=== PATIENT | female | born 1990 | race Caucasian/White ===

== ENCOUNTER 2021-10-25 21:25 | Inpatient (IN) | payer BC ==
[~2021-10-25] VITALS: Ht 167.6 cm; Wt 109.1 kg
--- NOTE | 2021-10-25 21:25 | NUR ---
2124 - PATIENT ARRIVED TO [facility] VIA WHEELCHAIR ACCOMPANIED BY AND SENIOR EMBEDDED SOFTWARE ENGINEER. PATIENT REPORTS SHE HAS BEEN LABORING AT HOME FOR OVER 24HRS AND WOULD LIKE AN EPIDURAL. PER PATIENT SROM AT 0400 ON 10/24/21. RECORDS FROM SENIOR EMBEDDED SOFTWARE ENGINEER OBTAINED AND PLACED ON CHART. 2129 - PATIENT ORIENTED TO ROOM. PLAN OF CARE REVIEWED. PATIENT PLACED ON EFM. VITAL SIGNS OBTAINED. CONSENTS REVIEWED AND SIGNED. 2144 - IV PLACED AND LABS OBTAINED ORDERED. 2204 - MD SCOTTIE AT BEDSIDE. PLAN OF CARE REVIEWED. 2209 - SVE PERFORMED BY MD SCOTTIE. . 2219 - LR INITITED ORDERED. CARE ONGOING.
[2021-10-25 21:45] VITALS: BP 161/83; PULSE 94; TEMP 98.7
[2021-10-25] MEDS ORDERED: PRENATAL TABLET PO (21:57)
[2021-10-25] MEDS ORDERED: VITAMIN C500 MG PO (21:57)
[2021-10-25] MEDS ORDERED: VITAMIN D31000 IU PO (21:57)
[2021-10-25] MEDS ORDERED: VITAMIN A10k (21:58)
[2021-10-25] MEDS ORDERED: PHARMASSURE ZIN50 MG PO (21:58)
--- NOTE | 2021-10-25 22:15 | NUR ---
DIFFICULTY WITH TOCO TRACING. TOCO ADJUSTED. CARE ONGOING.
[2021-10-25 22:30] LABS: HEMOGLOBIN 12.7 g/dl (12.5-16.0); MEAN CELL VOLUME 83 fl (80.0-100.0); MEAN CORPUSCULAR HEMOGLOBIN 29 pg (27-31); MEAN CORPUSCULAR HGB CONC 35 g/dl (33.0-37.0); MEAN PLATELET VOLUME 10.3 fl (7.4-10.4); PLATELET COUNT 269 K/mm3 (130-400); RED BLOOD COUNT 4.35 M/mm3 (4.10-5.30); REDCELL DISTRIBUTION WIDTH-CV 13.9 % (11.5-14.5)
--- NOTE | 2021-10-25 22:30 | NUR ---
TOCO TRACING INDESCERNIBLE. TOCO ADJUSTED. CARE ONGOING.
--- NOTE | 2021-10-25 22:37 | NUR ---
2237 - GIL MIDDLETON TO BEDSIDE. 2245 - PATIENT POSITIONED SITTING UP FOR EPIDURAL PLACEMENT. 2251 - SINGLE SHOT GIVEN PER GIL MIDDLETON. EFM TRACING POOR DURING PROCEDURE. PATIENT REPOSITIONED AND EFM ADJUSTED. CARE ONGOING.
[2021-10-25 22:39] LABS: HEMATOCRIT 36.3 % (37.0-47.0)
[2021-10-25 22:45] VITALS: BP 178/93; PULSE 96
[2021-10-25 22:49] LABS: BAND 15 % (0-10); LYMPHOCYTE 6 % (20.0-51.0); NEUTROPHILS 75 % (42.0-75.2)
[2021-10-25 22:50] LABS: PLATELET ESTIMATE NORMAL (NORMAL)
[2021-10-25 23:00] VITALS: BP 157/75; PULSE 106
--- NOTE | 2021-10-25 23:00 | NUR ---
PATIENT REPOSITIONED AFTER EPIDURAL PLACEMENT. TOCO ADJUSTED. CARE ONGOING.
[2021-10-25 23:15] VITALS: BP 144/76; PULSE 91
[2021-10-25 23:30] VITALS: BP 126/71; PULSE 101; TEMP 97.9
--- NOTE | 2021-10-25 23:40 | NUR ---
TOCO TRACING DIFFICULT TO INTERPRET. TOCO ADJUSTED. CARE ONGOING.
[2021-10-25 23:45] VITALS: BP 127/61; PULSE 111
[2021-10-26] VITALS (40 sets, daily range): BP systolic 116–175; BP diastolic 55–94; PULSE 68–112; TEMP 97.6–98.6
--- NOTE | 2021-10-26 | NUR ---
TOCO TRACING INDESCERNIBLE. TOCO ADJUSTED. CARE ONGOING.
--- NOTE | 2021-10-26 00:40 | NUR ---
TOCO TRACING DIFFICULT TO INTERPRET. TOCO ADJUSTED. CARE ONGOING.
--- NOTE | 2021-10-26 01:30 | NUR ---
TOCO TRACING INDESCERNIBLE. TOCO ADJUSTED. CARE ONGOING.
--- NOTE | 2021-10-26 01:48 | NUR ---
PATIENT REPOSITIONED AFTER SVE. TOCO ADJUSTED. CARE ONGOING.
--- NOTE | 2021-10-26 02:40 | NUR ---
TOCO ADJUSTED. CARE ONGOING.
--- NOTE | 2021-10-26 02:50 | NUR ---
0250- PT TO LEFT LATERAL POSITION FOR COMFORT, MONITORS ADJUSTED. 0305- TOCO ADJUSTED. 0345- SVE BY Gorge TORO RN COMPLETE AND +2 STATION. CHARGE NURSE AND NURSERY NOTIFIED. PT EDUCATED ON PUSHING PROCESS AND QUESTIONS ANSWERED. 0400- KRUEGER CATHETER REMOVED FOR PUSHING AND PERICARE PROVIDED. 0415- PT POSITIONED IN FOOTPLATES AND BEGINS COACHED PUSHING WITH CONTRACTIONS. 0600- CONTRACTIONS STILL IRREGULAR, PT MAKING PROGRESS. PITOCIN INCREASED TO 10MUNITS.
--- NOTE | 2021-10-26 06:30 | NUR ---
0630Bedside report from Dino Haywood RN. Patient pushing with contractions. Strong maternal effort. Moves vertex well. 0651Dr. Brizuela updated on pt. See physician notification. FHR tracing intermittently due to maternal pushing efforts and habitus. RN remains at bedside. 0704Small crown noted with pushing. Dr. Brizuela updated. See physician notification. 0715Dr. Brizuela to bedside. Pt continues to push with contractions with Dr. rBizuela and nursing staff at bedside. 0724Spontaneous vaginal delivery of viable female infant. To mother's chest where dried and stimulated by nursery RN. Pitocin paused. 0733Cord clamped x2 and cut by father of . Cord gases/blood obtained by Dr. Brizuela. Care of assumed by Danyell Gee RN. 0737Spontaneous and intact delivery of placenta. Pitocin to 333ml/hr per protocol. Periurethral and second degree laceration repaired by Dr. Brizuela. Fundus firm, midline, and bleeding small. Teresa care provided, pads changed, and ice pack to perineum. Plan of care and safety precations reviewed. See doctor dictation, anesthesia record, and nurses notes.
--- NOTE | 2021-10-26 08:15 | NUR ---
0815Epidural catheter removed by Soni Neely CRNA. See anesthesia record.
[2021-10-26] MEDS ORDERED: MOTRIN 800800 MG/TAB PO (15:52)
[2021-10-27 04:00] VITALS: BP 123/65; PULSE 88; TEMP 97.9
[2021-10-27 08:15] VITALS: BP 118/46; PULSE 86; TEMP 97.8
[2021-10-27 16:34] VITALS: BP 135/84; PULSE 106; TEMP 97.8
[2021-10-27 22:30] VITALS: BP 136/80; PULSE 96; TEMP 98.1
[2021-10-28 07:40] VITALS: BP 123/66; PULSE 96; TEMP 97.7
--- NOTE | 2021-10-28 10:59 | NUR ---
1040DISCHARGE INSTRUCTIONS REVIEWED WITH PATIENT. PATIENT VERBALIZED UNDERSTANDING. ALL QUESTIONS ANSWERED. WILL NOTIFY NURSING STAFF WHEN READY TO LEAVE.
--- NOTE | 2021-10-28 11:46 | NUR ---
1130ALL PERSONAL BELONGINGS GATHERED FROM PATIENT ROOM. PATIENT LEFT AMBULATORY AND IN NO APPARENT DISTRESS. PATIENT ACCOMPANIED BY SPOUSE AND THIS RN.
== END 2021-10-28 11:30 | disposition home or self-care (01) | DRG 807 ==
LOC: LDRO 21:25 → LDR 21:52 → OB 21:52
PROVIDERS: ADMIT Obstetrics & Gynecology
PROC: 10E0XZZ Delivery of Products of Conception, External Approach (ICD-10-PCS; principal; 2021-10-25)
PROC: 0KQM0ZZ Repair Perineum Muscle, Open Approach (ICD-10-PCS; 2021-10-25)
PROC: 0UQMXZZ Repair Vulva, External Approach (ICD-10-PCS; 2021-10-25)
DX: O48.0 Post-term pregnancy (principal); Z37.0 Single live birth; Z3A.40 40 weeks gestation of pregnancy; O70.1 Second degree perineal laceration during delivery; O71.82 Other specified trauma to perineum and vulva; O76 Abnormality in fetal heart rate and rhythm complicating labor and delivery; O99.284 Endocrine, nutritional and metabolic diseases complicating childbirth; E28.2 Polycystic ovarian syndrome; O99.214 Obesity complicating childbirth; O75.81 Maternal exhaustion complicating labor and delivery
CPT/HCPCS: J0290; J1580; J2590; J2795; J7120